=== PATIENT | female | born 1970 | race Caucasian/White ===

== ENCOUNTER 2018-06-02 01:16 | Outpatient (CLI) | payer MEDICAID, SELFPAY ==
--- NOTE | 2018-06-02 09:08 | DI.US_ITS ---
SYMPTOMS/DIAGNOSIS: F/U KIDNEY STONES, N20.0 RENAL ULTRASOUND: The right kidney measures 11.7 x 5.4 x 4.7 cm. The left kidney measures 10.8 x 4.2 x 4.8 cm. The prevoid bladder contains 39 cc, the postvoid bladder contains 0. Both ureteral jets were visualized. SUMMARY: Normal renal ultrasound.
== END 2018-06-02 01:36 ==
PROVIDERS: PCP Nurse Practitioner Family; Visit Provider Urology
DX: N20.0 Calculus of kidney (principal)
CPT/HCPCS: 76770

== ENCOUNTER 2018-09-25 11:29 | Outpatient (REF) | payer MEDICAID, SELFPAY ==
--- NOTE | 2018-09-25 11:00 | SKI_PTH ---
PATIENT: Courtney Alatorre LOC: [facility] U#:[id number] AGE/SX: 48/F ROOM: RE09/25/[address]: Fabienne Casillas : 1970 BED: DIS: 09/25/2018 SPEC #: [id number] RECD: 09/25/18 20:00 STATUS: ROBERT TRAORE #: [id number] SIDDHARTH: 09/25/18 11:[address]: Fabienne Casillas DEPT: Surgical Specimen RECD BY: Lenora Mooney Tissues: 1 - SKIN BIOPSY(SHAVE/PUNCH) Procedures: SKIN LEVEL 4 Comments: [id number]
== END 2018-09-25 11:49 ==
LOC: NCHCN 11:29
PROVIDERS: PCP Nurse Practitioner Family; Visit Provider Nurse Practitioner Family
DX: L85.9 Epidermal thickening, unspecified (principal); L08.89 Other specified local infections of the skin and subcutaneous tissue
CPT/HCPCS: 88305

== ENCOUNTER 2018-10-20 00:38 | Outpatient (CLI) | payer MEDICAID, SELFPAY ==
--- NOTE | 2018-10-20 09:23 | DI.MRI_ITS ---
SYMPTOM/DIAGNOSIS: RT KNEE PAIN, LOCKING, ? MENISCUS TEAR RIGHT KNEE MRI: Routine noncontrast examination was performed. The anterior cruciate and posterior cruciate ligaments are intact as are the medial and lateral collateral ligaments, extensor mechanism, medial and lateral retinaculum and popliteus tendon. There is no evidence of a meniscal tear. The articular cartilage is well maintained. Marrow signal is within normal limits. No evidence of an occult fracture or avascular necrosis is seen. There is a normal amount of fluid in the joint space. No significant popliteal cyst is seen. The muscles show normal signal and size. No soft tissue mass or focal fluid collection is appreciated. IMPRESSION: No evidence of a meniscal or ligament tear. No acute osseous abnormality.
== END 2018-10-20 00:58 ==
PROVIDERS: PCP Nurse Practitioner Family; Visit Provider Orthopaedic Surgery
DX: M25.561 Pain in right knee (principal); M23.91 Unspecified internal derangement of right knee
CPT/HCPCS: 73721

== ENCOUNTER 2018-10-27 11:39 | Day surgery (SDC) | payer MEDICAID, SELFPAY ==
[2018-10-27 12:02] VITALS: BP 120/85; PULSE 86; RESP 16; TEMP 36.4; O2SAT 98
[2018-10-27] MEDS: Lidocaine 2% Multi-Dose 50 ML VIAL (13:20)
--- NOTE | 2018-10-27 13:43 | W.PM.DSUDISC ---
Discharge Plan Disposition Patient Disposition: HOME Condition: Improving Discharge Details Attending Provider: Andrew Glass Primary Care Provider: Fabienne Casillas Home Meds and New Rx's Prescriptions: No Action norethindrone (contraceptive) 0.35 mg tablet 0.35 mg PO DAILY Qty: 84 RF: 3 alprazolam [Xanax] 0.25 mg tablet 0.25 mg PO ONCE RF: 0 fexofenadine [Kaelyn Allergy] 180 MG tablet 180 mg PO DAILY RF: 0 ibuprofen 200 mg Capsule 600 mg PO QID PRNRF: 0 Discharge Instructions Additional Instructions: KEEP YOUR LEFT HAND ELEVATED ABOVE HEART LEVEL MUCH POSSIBLE FOR THE NEXT 48 HOURS. YOU MAY EXERCISE YOUR FINGERS AND THUMB COMFORT ALLOWS. YOU MAY LOOSEN THE WRIST SPLINT AND/OR THE UNDERLYING LALIT BANDAGE IF THEY FEEL TOO TIGHT. EXPECT SOME BLOODY DRAINAGE ON THE UNDERLYING GAUZE BANDAGES. FOR SHOWERING TOMORROW, COVER THE SPLINT AND BANDAGES WITH A PLASTIC BAG AND A RUBBER BAND ABOUT THE FOREARM TO KEEP THE BANDAGES DRY. ON 10/29/18, YOU MAY REMOVE ALL OF YOUR BANDAGES AND GET YOUR WOUND WET IN THE SHOWER WITH SOAP AND WATER. GENTLY PAT THE STITCHES DRY AND COVER THEM WITH GAUZE OF EXTRA-LARGE BANDAIDS. RESUME NORMAL USE TOLERATED GOING WITHOUT THE VELCRO SPLINT SOON YOU ARE COMFORTABLE. FOR SLEEPING AT NIGHT, PLACE YOUR HAND AND FOREARM IN A PILLOW SPLINT. THIS IS MADE BY WRAPPING A PILLOW ABOUT THE ARM AND SAFETY PINNING THE ENDS OF THE PILLOW TOGETHER. THIS ALLOWS SOME ELEVATION OF THE HAND WHILE SLEEPING. TAKE YOUR USUAL MEDICATIONS BEFORE. TAKE TYLENOL, ADVIL OR ALEVE FOR MILDER PAIN. TYLENOL MAY BE TAKEN AT THE SAME TIME ALEVE, OR AT THE SAME TIME ADVIL THEY ARE METABOLIZED DIFFERENTLY AND ARE NOT CROSS TOXIC. TAKE NORCO (HYDROCODONE 5/325MG) 1-2 EVERY 4-6 HOURS FOR MORE SERIOUS PAIN. [facility] [place] REGULATIONS LIMIT THE AMOUNT OF NORCO THAT CAN BE PRESCRIBED TO 18 TABLETS. FOLLOW-UP WITH DR. GLASS IN 1 WEEK FOR STITCH REMOVAL. Equipment/Supplies: Brace Activity:: Elevate Remove Dressings/Wound Care:: 48 hours Shower/Bathe:: 48 hours Diet:: As Tolerated Discharge Orders Discharge Orders: Discharge Order (Routine); Ordered 10/27/18 Ordered By: Andrew Glass DS: Diagnosis Discharge Diagnosis (1) Left carpal tunnel syndrome: Status: Acute
--- NOTE | 2018-10-27 13:53 | PDOC.DSDIS_ITS ---
Discharge Plan Disposition Patient Disposition: HOME Condition: Improving Discharge Details Attending Provider: Andrew Glass Primary Care Provider: Fabienne Casillas Home Meds and New Rx's Prescriptions: No Action norethindrone (contraceptive) 0.35 mg tablet 0.35 mg PO DAILY Qty: 84 RF: 3 alprazolam [Xanax] 0.25 mg tablet 0.25 mg PO ONCE RF: 0 fexofenadine [Kaelyn Allergy] 180 MG tablet 180 mg PO DAILY RF: 0 ibuprofen 200 mg Capsule 600 mg PO QID PRNRF: 0 Discharge Instructions Additional Instructions: KEEP YOUR LEFT HAND ELEVATED ABOVE HEART LEVEL MUCH POSSIBLE FOR THE NEXT 48 HOURS. YOU MAY EXERCISE YOUR FINGERS AND THUMB COMFORT ALLOWS. YOU MAY LOOSEN THE WRIST SPLINT AND/OR THE UNDERLYING LALIT BANDAGE IF THEY FEEL TOO TIGHT. EXPECT SOME BLOODY DRAINAGE ON THE UNDERLYING GAUZE BANDAGES. FOR SHOWERING TOMORROW, COVER THE SPLINT AND BANDAGES WITH A PLASTIC BAG AND A RUBBER BAND ABOUT THE FOREARM TO KEEP THE BANDAGES DRY. ON 10/29/18, YOU MAY REMOVE ALL OF YOUR BANDAGES AND GET YOUR WOUND WET IN THE SHOWER WITH SOAP AND WATER. GENTLY PAT THE STITCHES DRY AND COVER THEM WITH GAUZE OF EXTRA- LARGE BANDAIDS. RESUME NORMAL USE TOLERATED GOING WITHOUT THE VELCRO SPLINT SOON YOU ARE COMFORTABLE. FOR SLEEPING AT NIGHT, PLACE YOUR HAND AND FOREARM IN A PILLOW SPLINT. THIS IS MADE BY WRAPPING A PILLOW ABOUT THE ARM AND SAFETY PINNING THE ENDS OF THE PILLOW TOGETHER. THIS ALLOWS SOME ELEVATION OF THE HAND WHILE SLEEPING. TAKE YOUR USUAL MEDICATIONS BEFORE. TAKE TYLENOL, ADVIL OR ALEVE FOR MILDER PAIN. TYLENOL MAY BE TAKEN AT THE SAME TIME ALEVE, OR AT THE SAME TIME ADVIL THEY ARE METABOLIZED DIFFERENTLY AND ARE NOT CROSS TOXIC. TAKE NORCO (HYDROCODONE 5/325MG) 1-2 EVERY 4-6 HOURS FOR MORE SERIOUS PAIN. [facility] [place] REGULATIONS LIMIT THE AMOUNT OF NORCO THAT CAN BE PRESCRIBED TO 18 TABLETS. FOLLOW-UP WITH DR. GLASS IN 1 WEEK FOR STITCH REMOVAL. Equipment/Supplies: Brace Activity:: Elevate Remove Dressings/Wound Care:: 48 hours Shower/Bathe:: 48 hours Diet:: As Tolerated Discharge Orders Discharge Orders: Discharge Order (Routine); Ordered 10/27/18 Ordered By: Andrew Glass DS: Diagnosis Discharge Diagnosis (1) Left carpal tunnel syndrome: Status: Acute
--- NOTE | 2018-10-27 14:55 | ROE_ITS ---
DATE OF PROCEDURE: October 27, 2018 PREOPERATIVE DIAGNOSIS: Chronic left carpal tunnel syndrome. POSTOPERATIVE DIAGNOSIS: Same. PROCEDURE: Left open carpal tunnel release. SURGEON: Andrew Almonte M.D. TELEPHONIC CASE MANAGER: Nurse. ANESTHETIC: 2% Lidocaine plain. PREP: ChloraPrep. INDICATIONS: This patient has been suffering from bilateral carpal tunnel syndrome. She has signifi cant pain in both hands with numbness and relatively cold fingers. She does not have Dagoberto's phenom enon. Clinical exam was consistent with carpal tunnel syndrome. There do not appear to be any evide nce of ulnar neuropathy. I discussed the planned operative procedure with her in detail. I discusse d the differences between open versus endoscopic carpal tunnel release. She understood and wished to proceed. The patient was greeted in the Day Surgery holding area. I went over her planned procedure with her in detail and her mother. I described the incision and the administration of local anesthesia. She understood and wished to proceed. PROCEDURE: She was taken to the operating suite where her left upper extremity was prepped with Chlo raPrep. Sterile drapes were applied. A universal incision was utilized, but a time-out was done fir . After confirming the planned procedure and completing the time-out, 1.5-inch x 25 gauge needle w as used to infiltrate 2% Lidocaine long the ring finger ray. Care was taken to deviate the incision in an ulnar direction as it crossed the distal flexion crease of the wrist. After ensuring complete anesthesia over the proposed incision site, the incision was made. Loupe magnification was used thro ughout. A combination of sharp and blunt dissection was utilized to expose the palmar fascia. Heis s retractors were inserted, which provided good visualization. Hemostasis was controlled by direct p ressure with 4x4's. The transverse carpal ligament was identified and incised under direct vision wi th a 15 scalpel blade. A complete release was done from the distal portion of the antebrachial fasci a to the arterial arcade. The underlying flexor tendons showed mild to moderate flexor tenosynovitis . There were no loose bodies, foreign bodies or ganglion cysts noted. The wound was then irrigated. The skin was closed with sutures of #5-0 Ethilon, alternating simple sutures with vzbn-kda-tse-near retention sutures. The wound was dressed with Xeroform gauze followed by 4x4's, a 3-inch confirmin g gauze bandage, a 3-inch Holden wrap and a commercial wrist immobilizer. The patient was taken to the Day Surgery preop area in satisfactory condition, tolerating the procedure well.
== END 2018-10-27 14:16 | disposition home or self-care (01) ==
PROVIDERS: PCP Nurse Practitioner Family; Visit Provider Orthopaedic Surgery
PROC: (CPT 64721; principal; 2018-10-27 13:00)
DX: G56.02 Carpal tunnel syndrome, left upper limb (principal)
CPT/HCPCS: 64721; L3908

== ENCOUNTER 2018-12-16 09:26 | Day surgery (SDC) | payer MEDICAID, SELFPAY ==
[2018-12-16 09:35] VITALS: BP 114/76; PULSE 80; RESP 19; TEMP 36.5; O2SAT 98
[2018-12-16] MEDS: Lidocaine 2% Multi-Dose 50 ML VIAL (10:42)
--- NOTE | 2018-12-16 11:16 | W.PM.DSUDISC ---
Discharge Plan Disposition Patient Disposition: HOME Condition: Improving Discharge Details Attending Provider: Andrew Almonte Primary Care Provider: Fabienne Casillas Home Meds and New Rx's Prescriptions: No Action norethindrone (contraceptive) 0.35 mg tablet 0.35 mg PO DAILY Qty: 84 RF: 3 fexofenadine [Kaelyn Allergy] 180 MG tablet 180 mg PO DAILY RF: 0 ibuprofen 200 mg Capsule 600 mg PO QID PRNRF: 0 Discharge Orders Discharge Orders: Discharge Order (Routine); Ordered 12/16/18 Ordered By: Andrew Almonte DS: Diagnosis Discharge Diagnosis (1) Right carpal tunnel syndrome: Status: Acute
--- NOTE | 2018-12-16 12:30 | ROE_ITS ---
REPORT OF OPERATIVE PROCEDURE DATE OF PROCEDURE December 16, 2018 PREOPERATIVE DIAGNOSIS Chronic right carpal tunnel syndrome. POSTOPERATIVE DIAGNOSIS Chronic right carpal tunnel syndrome. PROCEDURE Right open carpal tunnel release. SURGEON Andrew Almonte M.D. [employer] OPERATOR Tech ANESTHESIA 2% lidocaine plain. PREP ChloraPrep INDICATIONS This patient is status post successful left open carpal tunnel release about seven weeks ago. She is now here to have the right carpal tunnel released because of persistent symptoms that have failed con servative treatment. She had EMG nerve conduction studies validating her diagnosis. DESCRIPTION OF PROCEDURE After greeting the patient in the Day Surgery holding area, she was brought to the Operating suite. H er right upper extremity was prepped and draped with sterile drapes. Her skin was prepped with Chlora Prep. A universal carpal tunnel incision was done based over the ring finger ray. Care was taken to deviat e the incision in an ulnar direction as it crossed the distal flexion crease of the wrist so as to pr event any injuries of the palmar cutaneous branch of the median nerve. Loupe magnification was utiliz ed throughout the procedure. 2% lidocaine was then used to create an anesthetic wheal over the propo sed incision site after waiting an appropriate amount of time, the patient had complete anesthesia du ring the procedure. A #15-scalpel blade was then used to expose the carpal tunnel. Subcutaneous fat was incised sharply a nd Gueroiss retractors were inserted. The palmar fascia was incised and then the transverse carpal ligam ent was identified. Under direct vision, it was released from a distal to proximal direction. Care was taken to release t he distal portion of the antebrachial fascia so as to prevent it causing any median nerve compression . Complete release was done and the flexor tendons were inspected. I did not see any evidence of loo se bodies, foreign bodies or ganglion cysts. The patient could flex and extend her fingers fully. The median nerve had a characteristic hourglass constriction in the mid portion of the carpal canal. The wound was then irrigated. The skin was closed with sutures consisting of #5-0 Ethilon alternating simple sutures with near-far, far-near retention sutures. The wound was dressed with Xeroform gauze, followed by 4x4s, a 3-inch conforming gauze bandage, a 3-inch Holden wrap and a commercial wrist immobi lization. The patient was taken to the Recovery Room in satisfactory condition, tolerating the proce dure well.
== END 2018-12-16 11:50 | disposition home or self-care (01) ==
PROVIDERS: PCP Nurse Practitioner Family; Visit Provider Orthopaedic Surgery
PROC: (CPT 64721; principal; 2018-12-16 10:30)
DX: G56.01 Carpal tunnel syndrome, right upper limb (principal)
CPT/HCPCS: 64721; L3908

== ENCOUNTER 2019-01-20 11:55 | Outpatient (REF) | payer MEDICAID, SELFPAY | END 2019-01-20 12:15 | LOC: LBN 11:55 | PROVIDERS: PCP Nurse Practitioner Family; Visit Provider Advanced Practice Midwife | DX: N89.8 Other specified noninflammatory disorders of vagina (principal) | CPT/HCPCS: 87480; 87510; 87660 ==

== ENCOUNTER 2019-08-16 01:21 | Outpatient (CLI) | payer MEDICAID, SELFPAY ==
--- NOTE | 2019-08-16 10:52 | DI.US_ITS ---
EXAM: US RENAL CLINICAL HISTORY: monitor for stones N20.0. TECHNIQUE: Gutierrez scale, color and spectral Doppler were used. COMPARISON: RENAL COLIC WO CONTRAST from 08/09/2017 US renal from 06/02/2018 FINDINGS: Renal size in cm: Right: 10.8 left: 11.1 Echogenicity: Normal Hydronephrosis: No Cyst or mass: No Nephrolithiasis: No Other findings: None Bladder:Incompletely distended but otherwise unremarkable. Both ureteral jets were visualized. Prevoid vol:19 cc Postvoid vol:0 cc IMPRESSION: No sonographic evidence of nephrolithiasis.
== END 2019-08-16 01:41 ==
PROVIDERS: PCP Nurse Practitioner Family; Visit Provider Urology
DX: N20.0 Calculus of kidney (principal)
CPT/HCPCS: 76770

== ENCOUNTER 2019-12-21 13:40 | Outpatient (REF) | payer MEDICAID, SELFPAY ==
--- NOTE | 2019-12-21 13:15 | PAPFT_PTH ---
PATIENT: Courtney Alatorre LOC: [facility] U#:[id number] AGE/SX: 49/F ROOM: RE12/21/[address]: RONALDO Jiang : 1970 BED: DIS: 12/21/2019 SPEC #: [id number] RECD: 12/21/19 15:10 STATUS: ALISCarmen RECody #: [id number] SIDDHARTH: 12/21/19 13:[address]: Mona Alonso DEPT: [facility] Cytology RECD BY: Yael Murphy ENTERED: 12/21/19 15:11 SP TYPE: PAPFT OTHR DR: Fabienne Casillas Tissues: 1 - CX/ENDOCX FOR PAP SMEARS Procedures: PAP THIN PREP/[facility] Screening HPV DNA PROBE Comments: [id number]
== END 2019-12-21 14:00 ==
LOC: LBN 13:40
PROVIDERS: PCP Nurse Practitioner Family; Visit Provider Nurse Practitioner Family
DX: Z12.4 Encounter for screening for malignant neoplasm of cervix (principal); Z11.51 Encounter for screening for human papillomavirus (HPV)
CPT/HCPCS: 88142; 87624

== ENCOUNTER 2020-07-27 16:42 | Outpatient (REF) | payer MEDICAID, SELFPAY | END 2020-07-27 17:02 | LOC: LBN 16:42 | PROVIDERS: PCP Nurse Practitioner Family; Visit Provider Nurse Practitioner Family | DX: R30.0 Dysuria (principal) | CPT/HCPCS: 87086 ==

== ENCOUNTER 2020-08-14 02:12 | Outpatient (CLI) | payer MEDICAID, SELFPAY ==
--- NOTE | 2020-08-14 07:00 | DI.US_ITS ---
EXAM: US RENAL CLINICAL HISTORY: monitoring kidney stones size/position,N20.0. TECHNIQUE: Gutierrez scale, color and spectral Doppler were used. COMPARISON: US US RENAL from 08/16/2019 FINDINGS: Renal size in cm: Right: 10.1. Left: 12.0. Echogenicity: Normal. Hydronephrosis: No. Cyst or mass: No. Nephrolithiasis: No. Other findings: None. Bladder:Normal. Ureteral jets: Right: Visualized and unremarkable. Left: Visualized and unremarkable. Prevoid vol:26 cc Postvoid vol:0 cc Renal color flow: Symmetric and within normal limits. IMPRESSION: No evidence of nephrolithiasis. DATA REPOSITORY:
== END 2020-08-14 02:32 ==
PROVIDERS: PCP Nurse Practitioner Family; Visit Provider Nurse Practitioner Gerontology
DX: Z87.442 Personal history of urinary calculi (principal)
CPT/HCPCS: 76770

== ENCOUNTER 2020-09-07 14:52 | Emergency (ER) | payer MEDICAID, SELFPAY ==
[2020-09-07 14:56] VITALS: BP 120/69; PULSE 75; RESP 18; TEMP 36.5; O2SAT 97
--- NOTE | 2020-09-07 16:00 | DI.RAD_ITS ---
EXAM: XR SHOULDER RT COMPLETE 2+V CLINICAL HISTORY: right shoulder pain after fall. TECHNIQUE: 2D digital imaging was performed. COMPARISON: No exams were available for comparison FINDINGS: BONES: No acute fracture is present. No bony destructive lesion is seen. JOINTS: No dislocation present. No significant degenerative changes. SOFT TISSUE: Normal. There is a rounded small bony density adjacent to the humeral head which could r epresent calcific tendinosis. IMPRESSION: Calcific tendinosis. No acute abnormality. DATA REPOSITORY: RADIATION DOSE DELIVERED:
[2020-09-07 16:06] VITALS: BP 111/77; PULSE 87; RESP 18; O2SAT 97
--- NOTE | 2020-09-07 16:06 | ED.GENADUL_ITS ---
Discharge Plan Disposition Patient Disposition: HOME Condition: Good Discharge Details Clinical Impression: Injury of shoulder, right Primary Care Provider: Fabienne Casillas ED Provider: Yael Cuevas Home Meds and New Rx's Prescriptions: New oxycodone 5 mg capsule 5 mg PO Q6H PRNQty: 4 RF: 0 No Action fexofenadine [Kaelyn Allergy] 180 MG tablet 180 mg PO DAILY RF: 0 Discharge Instructions Instructions: Shoulder Sprain (ED) Additional Instructions: ibuprofen and tylenol for pain relieft motrin 600 mg every 8 hours with food, tylenol every 4 hours as needed for breakthrough pain ice, rest tendon avulsion injury to shoulder continue to range shoulder so it does not become stiff, wear sling during day for comfort return earlier with new or worsening complaints Referrals: Eladio Niño MD [ [facility] STAFF PHYSICIAN] - Medical Decision Making Patient has a small avulsion from tendon injury to the right shoulder, she was placed in a sling and will follow up with orthopedic and outpatient follow-up Ibuprofen and Tylenol for pain control Return precautions discussed and patient expressed understanding Discussed risk of frozen shoulder and patient will continue to range her shoulder Differential Diagnosis Differential Diagnosis: Fracture, strain, contusion, abrasion Medical Records Medical records reviewed: Yes I reviewed the patient's medical records. HPI This 50-year-old female presents status post fall at 10:30 AM of height. She landed with her arm outstretched directly onto her right shoulder. Denies any l additional injury. Patient denies any chest pain, headache, neck pain, back pain, history of coagulopathy,abdominal pain, shortness of breath. She took ibuprofen prior to arrival which partially alleviated her symptoms. General Date/Time Provider Initiated Documentation: 09/07/20 15:08 . Related Data Home Medications Medication Instructions Recorded Confirmed fexofenadine [Kaelyn Allergy] 180 mg PO DAILY 09/29/17 09/07/20 oxycodone 5 mg PO Q6H PRN #4 cap 09/07/20 Previous Rx's Medication Instructions Recorded oxycodone 5 mg PO Q6H PRN #4 cap 09/07/20 Allergies Allergy/AdvReac Type Severity Reaction Status Date / Time epinephrine Allergy Severe vomiting, Verified 09/07/20 15:05 heart races, dizziness, sweating sulfamethoxazole Allergy Severe Skin Rash Unverified 09/07/20 15:05 [From Bactrim] trimethoprim [From Bactrim] Allergy Severe Skin Rash Unverified 09/07/20 15:05 sulfamethizole Allergy Mild rash-swelli Unverified 09/07/20 15:05 ng Milk Containing Products AdvReac Mild EXCESS Unverified 09/07/20 15:05 MUCUS Environmental Allergy Intermediate Itchy, Uncoded 09/07/20 15:05 Water eyes, runny nose General Stated Complaint: Orthopedic MAGO: 3 Review of Systems Narrative: Review of systems negative x7 aside from where indicated in HPI PFSH Medical History (Updated 09/07/20 @ 17:12 by FLASH Longo) Kidney stones (08/12/17) Left ureteral stone (08/12/17) Migraine with aura and without status migrainosus, not intractable (08/29/17) Loss of vision Surgical History (Updated 01/19/19 @ 10:51 by Maria Elena Landaverde) H/O arthroscopy of knee Left knee History of cystoscopy Family History Father Aplastic anemia Heart disease Maternal Grandfather Heart disease Social History (Updated 06/02/18 @ 09:25 by Amna Matthews RN) Smoking/Tobacco Use Status: Never Smoking risk assessment performed?: Yes Alcohol Intake: current Alcohol Intake frequency: 0-2 drinks per day Alcohol type: wine Drug use: Never Substance use type: does not use Details: I drink two glasses of wine a night Do you feel safe at home: Yes Do you feel safe in your relationship?: Yes Female Reproductive History Menstrual control method: other History History 2 Para 2 Hx # Term Pregnancies 2 Multiple births Hx # Pregnancies Ectopic pregnancies AB induced Hx Number of Living Children 2 AB spontaneous Exam Const General: cooperative, healthy appearing and comfortable HENID Other: No bony tenderness or visible trauma Eyes Pupils: PERRL Neck Other: No midline tenderness Chest Chest: normal inspection of the chest and no localized rib tenderness Back/Spine/Pelvis Back: no CVA tenderness Other: No tenderness to thoracic or lumbar spine, no hip tenderness Extrem General: normal to inspection and capillary refill normal Shoulder/upper arm images: 1. Tender with palpation, mild swelling, no crepitus, decreased range of motion Neurovascularly intact, no tenderness to right elbow No tenderness to palpation to Course Vital Signs Vital signs: Vital Signs Temperature 36.5 C 09/07/20 14:56 Pulse 75 09/07/20 14:56 Respiratory Rate 18 09/07/20 14:56 Blood Pressure 120/69 09/07/20 14:56 Pulse Oximetry 97 09/07/20 14:56 Temperature 36.5 C 09/07/20 14:56 Temperature Source Skin 09/07/20 14:56 Pulse 75 09/07/20 14:56 Respiratory Rate 18 09/07/20 14:56 Respiratory Effort 09/07/20 15:03 Blood Pressure 120/69 09/07/20 14:56 Blood Pressure Position Sitting 09/07/20 14:56 Pulse Oximetry 97 09/07/20 14:56 Oxygen Delivery Method Room Air 09/07/20 14:56 Oxygen Flow Rate 0 09/07/20 14:56 Pain Level 0 09/07/20 16:02
[2020-09-07 16:47] VITALS: TEMP 36.6
--- NOTE | 2020-09-07 17:13 | DI.VRAD_ITS ---
PROCEDURE INFORMATION: Exam: XR Right Shoulder Exam date and time: 09/07/2020 5:06 PM Age: 50 years old Clinical indication: Injury or trauma; Fall; Blunt trauma (contusions or hematomas); Shoulder; Right TECHNIQUE: Imaging protocol: XR Right shoulder. Views: 2 or more views. COMPARISON: No relevant prior studies available. FINDINGS: Bones/joints: Bone density is appropriate. Bony alignment is anatomic. There is a calcific density seen in the soft tissues lateral to the greater tuberosity, likely nonacute. Suspect calcific tendinitis. Soft tissues: See above. IMPRESSION: Probable calcific tendinitis. No evidence for fracture. Dictated and Authenticated by: Olga Feliciano MD. Ordering:DARIO Conley MD
[2020-09-07 17:36] VITALS: BP 114/79; PULSE 74; RESP 18; TEMP 36.6; O2SAT 99
== END 2020-09-07 18:00 | disposition home or self-care (01) ==
PROVIDERS: Emergency Provider Physician Assistant; PCP Nurse Practitioner Family
DX: S49.81XA Other specified injuries of right shoulder and upper arm, initial encounter (principal); W00.0XXA Fall on same level due to ice and snow, initial encounter; Y92.481 Parking lot as the place of occurrence of the external cause
CPT/HCPCS: 99284; 73030; 99283

== ENCOUNTER 2021-08-13 00:30 | Outpatient (CLI) | payer MEDICAID, SELFPAY ==
--- NOTE | 2021-08-13 08:15 | DI.US_ITS ---
Exam(s) US RENAL EXAM: US RENAL CLINICAL HISTORY: monitoring kidney stones,n20.0. TECHNIQUE: Gutierrez scale, color and spectral Doppler were used. COMPARISON: No exams were available for comparison FINDINGS: Renal size in cm: Right: 10.5 left: 10.8 Echogenicity: Normal Hydronephrosis: No Cyst or mass: No Nephrolithiasis: No Bladder:Normal Prevoid vol:31 cc Postvoid vol: IMPRESSION: Negative renal ultrasound. No stones are visible. DATA REPOSITORY:
== END 2021-08-13 00:50 ==
PROVIDERS: PCP Nurse Practitioner Family; Visit Provider Nurse Practitioner Gerontology
DX: N20.0 Calculus of kidney (principal)
CPT/HCPCS: 76770

== ENCOUNTER 2021-12-26 15:40 | Outpatient (REF) | payer MEDICAID, SELFPAY ==
--- NOTE | 2021-12-26 15:00 | ENDOMET_PTH ---
PATIENT: Courtney Alatorre LOC: [facility] U#:[id number] AGE/SX: 51/F ROOM: RE12/26/[address]: Iris Isaacs NP : 1970 BED: DIS: 12/26/2021 SPEC #: [id number] RECD: 12/26/21 17:25 STATUS: ROBERT RECody #: [id number] SIDDHARTH: 12/26/21 15:[address]: Shital CHRISTIANSEN,Iris DEPT: Surgical Specimen RECD BY: Yael Murphy ENTERED: 12/26/21 17:26 SP TYPE: Endomet OTHR DR: Fabienne Casillas Tissues: 1 - ENDOMETRIUM BX/WENDIE Procedures: GROSS AND MICRO LEVEL 4 Comments: [id number]
== END 2021-12-26 15:41 | disposition home or self-care (01) ==
LOC: LBN 15:40
PROVIDERS: PCP Nurse Practitioner Family; Visit Provider Nurse Practitioner Women's Health
DX: N84.0 Polyp of corpus uteri (principal); N85.8 Other specified noninflammatory disorders of uterus; N93.8 Other specified abnormal uterine and vaginal bleeding
CPT/HCPCS: 88305

== ENCOUNTER → 2021-12-28 00:20 | Outpatient (CLI) | payer MEDICAID, SELFPAY ==
--- NOTE | 2021-12-28 07:00 | DI.US_ITS ---
Exam(s) US PELVIS TRANSVAGINAL EXAM: US PELVIS TRANSVAGINAL CLINICAL HISTORY: abnl uterine bleeding,n93.9 TECHNIQUE: Ultrasound performed using standard protocol. COMPARISON: US US RENAL from 08/13/2021 FINDINGS: Pelvic ultrasound was performed transabdominally and transvaginally. Uterus measures 5.4 x 5.2 x 3.9 cm with a 2.1 millimeter thick homogeneous endometrial stripe. There is an 18 millimeter in diameter apparent anterior midbody uterine fibroid. No other focal abnormality. The ovaries are unremarkable in appearance, right ovary measures 27 x 18 x 11 millimeters and left ov nany measures 20 x 14 x 21 millimeters. Limited scanning of the kidneys is unremarkable. No free fluid in the cul-de-sac. IMPRESSION: Presumed small anterior midbody uterine fibroid. No other significant findings. DATA REPOSITORY:
== END ==
PROVIDERS: PCP Nurse Practitioner Family; Visit Provider Nurse Practitioner Women's Health
DX: N93.9 Abnormal uterine and vaginal bleeding, unspecified (principal)
CPT/HCPCS: 76830; 76856

== ENCOUNTER 2022-08-15 02:00 | Outpatient (CLI) | payer MEDICAID, SELFPAY ==
--- NOTE | 2022-08-15 07:00 | DI.US_ITS ---
Exam(s) US RENAL EXAM: US RENAL CLINICAL HISTORY: monitoring renal stone to left,n20.0. TECHNIQUE: Gutierrez scale, color and spectral Doppler were used. COMPARISON: CT RENAL COLIC WO CONTRAST from 08/09/2017 US US RENAL from 08/13/2021 FINDINGS: Renal size in cm: Right: 11.1 left: 11.0 Echogenicity: Normal Hydronephrosis: No Cyst or mass: No Nephrolithiasis: No Bladder:Normal. Ureteral jets visualized. Prevoid vol:39 cc Postvoid vol:2 cc IMPRESSION: Negative renal ultrasound. No stones or hydronephrosis identified. DATA REPOSITORY:
== END 2022-08-15 02:20 ==
LOC: DI 02:00
PROVIDERS: PCP Nurse Practitioner Family; Visit Provider Nurse Practitioner Gerontology
DX: N20.0 Calculus of kidney (principal)
CPT/HCPCS: 76770

== ENCOUNTER → 2023-08-18 04:13 | Outpatient (CLI) | payer MEDICAID, SELFPAY ==
--- NOTE | 2023-08-18 06:30 | DI.US_ITS ---
Exam(s) US RENAL EXAM: US RENAL CLINICAL HISTORY: monitoring renal calculi,kidney stones, n20.0. TECHNIQUE: Gutierrez scale, color and spectral Doppler were used. COMPARISON: US US RENAL from 08/15/2022 FINDINGS: Renal size in cm: Right: 10.5 left: 10.8 Echogenicity: Normal Hydronephrosis: No Cyst or mass: No Nephrolithiasis: No Bladder:Normal. Prevoid vol:80 cc Postvoid vol: 0 cc IMPRESSION: Negative renal ultrasound. DATA REPOSITORY:
== END ==
PROVIDERS: PCP Nurse Practitioner Family; Visit Provider Nurse Practitioner Gerontology
DX: N20.0 Calculus of kidney (principal)
CPT/HCPCS: 76770

== ENCOUNTER 2024-04-05 08:51 | Outpatient (REF) | payer MEDICAID, SELFPAY ==
--- NOTE | 2024-04-05 08:30 | PAPFT_PTH ---
PATIENT: Courtney Alatorre LOC: [facility] U#:[id number] AGE/SX: 53/F ROOM: RE04/05/[address]: Iris Isaacs NP : 1970 BED: DIS: 04/05/2024 SPEC #: [id number] RECD: 04/05/24 13:22 STATUS: ROBERT TRAORE #: [id number] SIDDHARTH: 04/05/24 08:[address]: Iris Isaacs NP DEPT: [facility] Cytology RECD BY: Yael Murphy ENTERED: 04/05/24 13:23 SP TYPE: PAPFT OTHR DR: Fabienne Caslilas Tissues: 1 - CX/ENDOCX FOR PAP SMEARS Procedures: PAP THIN PREP/[facility] Screening HPV DNA PROBE Comments: [id number] (HPV 16 & 18/45)
== END 2024-04-05 08:52 | disposition home or self-care (01) ==
LOC: LBN 08:51
PROVIDERS: PCP Nurse Practitioner Family; Visit Provider Nurse Practitioner Women's Health
DX: Z01.419 Encounter for gynecological examination (general) (routine) without abnormal findings (principal); Z30.431 Encounter for routine checking of intrauterine contraceptive device; Z12.4 Encounter for screening for malignant neoplasm of cervix
CPT/HCPCS: 88142; 87624

== ENCOUNTER 2024-08-12 02:56 | Outpatient (CLI) | payer MEDICAID, SELFPAY ==
--- NOTE | 2024-08-12 06:15 | DI.US_ITS ---
Exam(s) US RENAL EXAM: US RENAL CLINICAL HISTORY: monitoring renal calculi,kidney stones,n20.0. TECHNIQUE: Gutierrez scale, color and spectral Doppler were used. COMPARISON: US US RENAL from 08/18/2023 FINDINGS: Renal size in cm: Right: 9.7. Left: 9.8. Echogenicity: Normal. Hydronephrosis: No. Cyst or mass: No. Nephrolithiasis: No. Other findings: None. Bladder:There is limited visualization of the bladder as it was not completely full during the examin ation. Ureteral jets: Right: Visualized and unremarkable. Left: Visualized and unremarkable. Prevoid vol:24 cc Postvoid vol:0 cc Renal color flow: Symmetric and within normal limits. IMPRESSION: No evidence of hydronephrosis or nephrolithiasis. DATA REPOSITORY:
== END 2024-08-12 03:16 ==
LOC: DI 02:57
PROVIDERS: PCP Nurse Practitioner Family; Visit Provider Nurse Practitioner Gerontology
DX: N20.0 Calculus of kidney (principal)
CPT/HCPCS: 76770